=== PATIENT | female | born 1955 | race Caucasian/White ===

== ENCOUNTER 2024-10-24 17:13 | Outpatient (CLI) | payer MEDICARE, BC, SELFPAY | END 2024-10-24 17:14 | disposition home or self-care (01) | LOC: AMB 10-25 16:05 | PROVIDERS: Visit Provider Emergency Medicine | DX: R42 Dizziness and giddiness (principal) | CPT/HCPCS: A0425; A0427 ==

== ENCOUNTER 2024-10-24 18:01 | Emergency (ER) | payer MEDICARE, BC, SELFPAY ==
[2024-10-24] VITALS (50 sets, daily range): BP systolic 112–151; BP diastolic 45–102; PULSE 81–141; RESP 15–44; TEMP 36.6–38; O2SAT 85–100; BMI 26.6
[2024-10-24] MEDS: ONDANSETRON 2 MG/ML inj 4 MG IVP (18:32)
[2024-10-24] MEDS: 0.9 % SODIUM CHLORIDE 1000 ml 1,000 ML IV (18:32)
[2024-10-24 18:35] LABS: HCO3 VBG 19 mmol/L (21-28); PCO2 VBG 28 mmHG (40-50); PO2 VBG 59.1 mmHG (25-47); pH VBG 7.445 (7.32-7.43)
[2024-10-24 18:36] LABS: Basophils Absolute Auto 0.03 K/uL (0.00-0.30); Basophils Percent Auto 0.3 % (0.0-3.0); Eosinophils Absolute Auto 0.01 K/uL (0.00-0.50); Eosinophils Percent Auto 0.1 % (0.0-7.0); Hematocrit 15.2 % (33.0-51.0); Immature Granulocytes Abs Auto 0.03 K/uL (0.00-0.30); Immature Granulocytes Pct Auto 0.3 %; Lactate Sepsis w/Reflex* 1.4 mmol/L (0.5-1.9); Lymphocytes Percent Auto 10.1 % (20-44); Mean Corpuscular HGB Conc 31 gm/dL (32-36); Mean Corpuscular Hemoglobin 31 pg (26-34); Mean Corpuscular Volume 101 fL (80-100); Monocytes Percent Auto 3.9 % (0.0-11.0); Neutrophils Percent Auto 85.3 % (42.0-72.0); Platelet Count* 318 K/uL (140-440); RDW Coefficient of Variation % 16.9 % (11.5-15.5)
[2024-10-24 18:45] LABS: Hemoglobin* 4.7 gm/dL (12.0-16.0); Slide Review Reflex No
[2024-10-24 18:56] LABS: Albumin* 3.8 g/dL (3.3-5.0); Chloride* 112 mmol/L (96-114); Sodium* 140 mmol/L (135-149)
[2024-10-24 18:57] LABS: Fecal Occult Blood* Positive (Negative)
[2024-10-24 18:57] LABS: Potassium* 4.1 mmol/L (3.6-5.1)
[2024-10-24 18:58] LABS: Blood Urea Nitrogen* 58 mg/dL (7-30); Creatinine* 1.9 mg/dL (0.5-1.5); Est. Creatinine Clearance* 22.47; Estimated Glomerular Filt Rate 28 ml/min; INR 1.09 (0.91-1.10); Partial Thromboplastin Time* 24 Seconds (23-33); Prothrombin Time 14.9 Seconds
[2024-10-24 18:59] LABS: Alkaline Phosphatase* 40 U/L (40-150); Anion Gap 11 mEq/L (7-15); Aspartate Amino Transferase* 16 U/L (12-35); Bilirubin Direct* 0.1 mg/dL (0.0-0.5); Bilirubin Total* 0.1 mg/dL (0.1-1.5); Carbon Dioxide* 17 mmol/L (20-32); D Dimer Quantitative* 0.46 ug/ml (0.00-0.50); Total Protein* 5.8 g/dL (6.0-8.3)
[2024-10-24 19:00] LABS: Alanine Aminotransferase* 17 U/L (4-35); Calcium* 9.7 mg/dL (8.4-10.6); Glucose* 133 mg/dL (60-115); Lipase* 175 U/L (23-300)
[2024-10-24 19:02] LABS: C Reactive Protein* 1.9 mg/dL (0.5-1.0)
[2024-10-24] MEDS: PANTOPRAZOLE SODIUM 40 MG INJ IVP (19:33)
--- NOTE | 2024-10-24 23:03 | ED.GENADULT ---
HPI - General Adult General Date Seen: 10/24/24 Chief complaint: Dizziness/Vertigo Stated complaint: Weakness Time Seen by Provider: 10/24/24 18:09 History of Present Illness HPI narrative: Patient is a 69-year-old woman brought in by EMS after a fall at home. History is obtained from the paramedics, less so from the patient, has been provided additional information on his arrival. Apparently he left the house around 1:00 a.m.. He says that she seemed okay at that time. She has looked kind of pale the past couple of days. She had an episode of vomiting yesterday and an episode of vomiting today, he denies any hematemesis or ervin blood. Did see a little couple specks of blood in what she threw up today. She has not been complaining about abdominal pain. She denies stool changes. Only past medical history reported was of a psychiatric, bipolar I believe, for which she takes a couple of different medications. She is not anticoagulated. Denies tobacco history or significant alcohol use. She says she has been feeling lightheaded today, she has not had chest pain or difficulty breathing. She denies any injuries in her fall. Her came home at about 5:00 p.m. and says that she was on the floor at that time, she was too dizzy to get up on her own. There was no loss of consciousness. Related Data Home Medications ?Medication ?Instructions ?Recorded ?Confirmed cosamin ds 10/24/24 gabapentin 10/24/24 seroquel 10/24/24 women's multivitamin 10/24/24 Allergies Allergy/AdvReac Type Severity Reaction Status Date / Time eye medicine Allergy Intermediate Uncoded 10/24/24 18:26 Review of Systems Status of ROS: Reports: 10 or more systems reviewed and unremarkable except as noted in History and below PFSH PFS Social History How often do you have a drink containing alcohol: never AUDIT-C Alcohol total score: 0 Non-prescribed substance use: denies use Exam Narrative: Exam Narrative: Vital signs reviewed In general an alert, elderly woman, she is exceedingly pale. Head: Normocephalic, atraumatic. Eyes: Sclera clear, lids pale. Pupils equal and reactive. ENT: Mucous membranes moist. Neck: Supple without adenopathy. Nontender to palpation. Heart: Mildly tachycardic, regular, no significant murmur. Lungs: Clear. No increased work of breathing, crackles or wheezes. Abdomen: Soft, nontender to palpation. Rectal: Black stool is noted diffusely between her buttocks. Rectal exam shows no masses. Fecal occult blood is positive Extremities: Pale, pulses intact. No areas of tenderness, bruising or deformity. Neurologic: Alert, conversant. Speech fluent, face symmetric. Moves all extremities equally. Skin: Warm, dry well perfused. No rashes. Affect: Her affect is somewhat mismatched to the seriousness of her complaint. Const: Vital Signs, click to edit/add: Vital Signs - 24 hr 10/24/24 18:15 10/24/24 18:15 10/24/24 18:30 Temperature 97.8 F Pulse Rate 95 Pulse Rate [Pulse Oximeter] 93 Respiratory Rate 16 16 44 H Blood Pressure Blood Pressure [Ri ght Upper Arm] 113/59 L Pulse Oximetry 97 99 Oxygen Delivery Me thod Room Air Oxygen Flow Rate 10/24/24 18:32 10/24/24 18:33 10/24/24 18:45 Temperature Pulse Rate 94 96 96 Pulse Rate [Pulse Oximeter] Respiratory Rate 28 H 19 38 H Blood Pressure 112/45 L Blood Pressure [Ri ght Upper Arm] Pulse Oximetry 98 97 94 Oxygen Delivery Me thod Oxygen Flow Rate 10/24/24 19:00 10/24/24 19:05 10/24/24 19:15 Temperature Pulse Rate 103 H 102 H 141 H Pulse Rate [Pulse Oximeter] Respiratory Rate 22 15 38 H Blood Pressure Blood Pressure [Ri ght Upper Arm] Pulse Oximetry 99 97 Oxygen Delivery Me thod Oxygen Flow Rate 10/24/24 19:27 10/24/24 19:30 10/24/24 19:32 Temperature Pulse Rate 101 H 98 107 H Pulse Rate [Pulse Oximeter] Respiratory Rate 15 28 H 38 H Blood Pressure 141/86 H 143/49 H Blood Pressure [Ri ght Upper Arm] Pulse Oximetry 98 97 97 Oxygen Delivery Me thod Oxygen Flow Rate 10/24/24 19:33 10/24/24 20:03 10/24/24 20:15 Temperature Pulse Rate 102 H 102 H 106 H Pulse Rate [Pulse Oximeter] Respiratory Rate 20 Blood Pressure Blood Pressure [Ri ght Upper Arm] Pulse Oximetry 95 95 85 L Oxygen Delivery Me thod Oxygen Flow Rate 10/24/24 20:30 10/24/24 20:34 10/24/24 20:39 Temperature 98.8 F Pulse Rate 105 H 101 H 99 Pulse Rate [Pulse Oximeter] Respiratory Rate 18 Blood Pressure 128/57 L 128/57 L Blood Pressure [Ri ght Upper Arm] Pulse Oximetry 97 96 96 Oxygen Delivery Me thod Room Air Oxygen Flow Rate 10/24/24 20:45 10/24/24 21:00 10/24/24 21:02 Temperature Pulse Rate 93 94 95 Pulse Rate [Pulse Oximeter] Respiratory Rate Blood Pressure 124/61 Blood Pressure [Ri ght Upper Arm] Pulse Oximetry 100 99 99 Oxygen Delivery Me thod Oxygen Flow Rate 10/24/24 21:05 10/24/24 21:15 10/24/24 21:16 Temperature 100.4 F H Pulse Rate 92 91 100 Pulse Rate [Pulse Oximeter] Respiratory Rate 16 Blood Pressure 127/64 127/64 Blood Pressure [Ri ght Upper Arm] Pulse Oximetry 98 99 100 Oxygen Delivery Me thod Room Air Oxygen Flow Rate 10/24/24 21:21 10/24/24 21:30 10/24/24 21:31 Temperature 98.5 F Pulse Rate 91 89 Pulse Rate [Pulse Oximeter] Respiratory Rate Blood Pressure 129/63 Blood Pressure [Ri ght Upper Arm] Pulse Oximetry 100 99 Oxygen Delivery Me thod Oxygen Flow Rate 10/24/24 21:31 10/24/24 21:32 10/24/24 21:41 Temperature Pulse Rate 88 90 88 Pulse Rate [Pulse Oximeter] Respiratory Rate Blood Pressure 132/70 138/68 139/66 Blood Pressure [Ri ght Upper Arm] Pulse Oximetry 100 100 100 Oxygen Delivery Me thod Oxygen Flow Rate 10/24/24 21:45 10/24/24 21:50 10/24/24 21:51 Temperature 99.6 F Pulse Rate 86 85 88 Pulse Rate [Pulse Oximeter] Respiratory Rate 16 Blood Pressure 131/63 131/63 Blood Pressure [Ri ght Upper Arm] Pulse Oximetry 100 100 100 Oxygen Delivery Me thod Room Air Oxygen Flow Rate 10/24/24 21:52 10/24/24 22:00 10/24/24 22:01 Temperature Pulse Rate 94 88 87 Pulse Rate [Pulse Oximeter] Respiratory Rate Blood Pressure 147/72 H Blood Pressure [Ri ght Upper Arm] Pulse Oximetry 100 100 99 Oxygen Delivery Me thod Oxygen Flow Rate 10/24/24 22:12 10/24/24 22:15 10/24/24 22:19 Temperature 98 F Pulse Rate 88 Pulse Rate [Pulse Oximeter] Respiratory Rate Blood Pressure 143/82 H Blood Pressure [Ri ght Upper Arm] Pulse Oximetry 99 Oxygen Delivery Me thod Oxygen Flow Rate 10/24/24 22:22 10/24/24 22:30 10/24/24 22:32 Temperature Pulse Rate 89 81 81 Pulse Rate [Pulse Oximeter] Respiratory Rate Blood Pressure 145/78 H 151/70 H Blood Pressure [Ri ght Upper Arm] Pulse Oximetry 97 96 100 Oxygen Delivery Me thod Oxygen Flow Rate 10/24/24 22:42 10/24/24 22:45 10/24/24 22:51 Temperature Pulse Rate 81 86 88 Pulse Rate [Pulse Oximeter] Respiratory Rate Blood Pressure 147/84 H 143/65 H Blood Pressure [Ri ght Upper Arm] Pulse Oximetry 98 87 L 96 Oxygen Delivery Me thod Oxygen Flow Rate 10/24/24 23:00 10/24/24 23:02 10/24/24 23:12 Temperature Pulse Rate 86 84 83 Pulse Rate [Pulse Oximeter] Respiratory Rate Blood Pressure 145/102 H 140/83 H Blood Pressure [Ri ght Upper Arm] Pulse Oximetry 95 95 96 Oxygen Delivery Me thod Oxygen Flow Rate 10/24/24 23:15 10/24/24 23:22 10/24/24 23:23 Temperature Pulse Rate 82 82 83 Pulse Rate [Pulse Oximeter] Respiratory Rate Blood Pressure 113/92 H Blood Pressure [Ri ght Upper Arm] Pulse Oximetry 92 96 93 Oxygen Delivery Me thod Oxygen Flow Rate 10/24/24 23:54 10/25/24 00:00 10/25/24 00:04 Temperature Pulse Rate 84 Pulse Rate [Pulse Oximeter] Respiratory Rate Blood Pressure Blood Pressure [Ri ght Upper Arm] Pulse Oximetry 89 89 91 Oxygen Delivery Me thod Oxygen Flow Rate 10/25/24 00:19 10/25/24 00:21 10/25/24 00:45 Temperature Pulse Rate 94 Pulse Rate [Pulse Oximeter] Respiratory Rate Blood Pressure Blood Pressure [Ri ght Upper Arm] Pulse Oximetry 93 94 93 Oxygen Delivery Me thod Nasal Cannula Nasal Cannula Oxygen Flow Rate 1 1 Course Course ED Course: On arrival, patient was placed on the monitor, a 2nd IV was established, and she was given a L normal saline. An EKG showed a sinus rhythm, ventricular rate at that time of 96. No acute ST segment changes. Nonspecific T-waves. Initial troponin was 0. My primary concern was for blood loss, I did send labs for CBC, coags, metabolic panel, LFTs, type and screen. In the meantime, she had a chest x-ray which by my review is negative. She was hemodynamically stable here with the exception of mild tachycardia. She did not have any vomiting or stooling while here in the emergency department. Her hemoglobin returned at 4.7 and as mentioned above the fecal occult blood was positive. I ordered Protonix, I also ordered a CT scan GI bleed protocol. I ordered 2 units for transfusion. Labs were notable for normal white blood cell count, venous gas showed a pH is 7.45, pCO2 of 28 and bicarb of 19. CO2 was 17 on her metabolic panel, BUN 58 and creatinine 1.9, baseline unknown. Lactate normal, LFTs normal, CRP 1.9, lipase 175. Prior to CT scan, I had discussed this patient with our general surgeon on-call, Dr. Cooper. She felt that patient would likely be best served at a larger facility given her profound anemia and indeterminate availability of endoscopy tomorrow. I had begun to pursue options for transfer, which were extraordinarily limited as there were no available [facility] bed it is in the [facility]. CT scan of the abdomen read by Radiology as showing a 5.1 cm mass with active arterial bleeding. At that time I reached back out for possible ICU beds, and [facility] reported being able to take her. Images were pushed so that in that interventional radiology can review. Initially they thought they would have a bed fairly quickly, but patient's transfer has been delayed secondary to acuity in their ICU with a couple of codes and inability to get the images to the interventional radiologist thus far. She is received 2 units of packed red cells. Given that she is going to be here, I will order repeat coags and CBC. Vital signs remain reassuring. There was a pulse ox recorded of 87% but nursing tells me that that was not accurate. Post transfusion, hemoglobin is 7.1, coags including PT PTT and fibrinogen remain normal. She has remained hemodynamically stable, heart rates been in the 90s. We do now have a bed ready at [facility] and she will be transported by ground ambulance. She apparently takes Ativan at night to sleep, was given 0.5 mg here. I did not give her her Seroquel as I have elected to keep her entirely npo. Vital Signs Vital signs: Initial Vital Signs Temperature 97.8 F 10/24/24 18:15 Temperature Source Temporal Artery Scan 10/24/24 18:15 Pulse Rate 93 10/24/24 18:15 Respiratory Rate 16 10/24/24 18:15 Blood Pressure 113/59 L 10/24/24 18:15 Blood Pressure Mean 77 10/24/24 18:15 Blood Pressure Position Supine 10/24/24 18:15 Pulse Oximetry 97 10/24/24 18:15 Oxygen Delivery Method Room Air 10/24/24 18:15 Vital Signs Temperature 97.8 F 10/24/24 18:15 Pulse Rate 93 10/24/24 18:15 Respiratory Rate 16 10/24/24 18:15 Blood Pressure 113/59 L 10/24/24 18:15 Pulse Oximetry 97 10/24/24 18:15 Oxygen Delivery Method Room Air 10/24/24 18:15 Temperature 98 F 10/24/24 22:19 Pulse Rate 94 10/25/24 00:45 Respiratory Rate 16 10/24/24 21:50 Blood Pressure 113/92 H 10/24/24 23:22 Pulse Oximetry 93 10/25/24 00:45 Oxygen Delivery Method Nasal Cannula 10/25/24 00:21 Oxygen Flow Rate 1 10/25/24 00:21 Medications Administered Medications: Discontinued Medications Generic Name Dose Route Start Last Admin Trade Name Freq PRN Reason Stop Dose Admin Sodium Chloride 1,000 mls @ 1,000 mls/hr 10/24/24 18:30 10/24/24 19:39 0.9 % Sodium Chloride 1000 Ml IV 10/24/24 19:29 Infused .Q1H FREDIS Infusion Lorazepam 0.5 mg 10/24/24 23:47 10/24/24 23:57 Lorazepam 2 Mg/Ml Inj IVP 10/24/24 23:48 0.5 mg ONCE ONE Administration Ondansetron HCl 4 mg 10/24/24 18:20 10/24/24 18:32 Ondansetron 2 Mg/Ml Inj IVP 10/24/24 18:21 4 mg ONCE ONE Administration Pantoprazole Sodium 40 mg 10/24/24 19:01 10/24/24 19:33 Pantoprazole Sodium 40 Mg Inj IVP 10/24/24 19:02 40 mg ONCE ONE Administration Medical Decision Making Lab Data Labs: Lab Results 10/24/24 10/24/24 10/24/24 Range/Units 18:18 18:25 18:25 WBC 11.00 (4.50-11.00) K/uL RBC 1.50 L (4.00-5.20) m/uL Hgb 4.7 L* (12.0-16.0) gm/dL Hct 15.2 L (33.0-51.0) % MCV 101 H (80-100) fL MCH 31 (26-34) pg MCHC 31 L (32-36) gm/dL RDW Coeff of Rashmi 16.9 H (11.5-15.5) % Plt Count 318 (140-440) K/uL Neut % (Auto) 85.3 H (42.0-72.0) % Lymph % (Auto) 10.1 L (20-44) % Union % (Auto) 3.9 (0.0-11.0) % Eos % (Auto) 0.1 (0.0-7.0) % Baso % (Auto) 0.3 (0.0-3.0) % Neut # (Auto) 9.40 H (1.7-7.0) K/uL Lymph # (Auto) 1.10 (0.90-2.90) K/uL Union # (Auto) 0.40 (0.00-0.90) K/UL Eos # (Auto) 0.01 (0.00-0.50) K/uL Baso # (Auto) 0.03 (0.00-0.30) K/uL Abs Immat Gran (auto) 0.03 (0.00-0.30) K/uL Imm/Tot Granulo (auto) 0.3 % INR 1.09 Cancelled (0.91-1.10) APTT 24 (23-33) Seconds Fibrinogen (200-450) mg/dL D-Dimer Quant (PE/DVT) (0.00-0.50) ug/ml VBG pH (7.32-7.43) VBG pCO2 (40-50) mmHG VBG pO2 (25-47) mmHG VBG HCO3 (21-28) mmol/L Sodium (135-149) mmol/L Potassium (3.6-5.1) mmol/L Chloride (96-114) mmol/L Carbon Dioxide (20-32) mmol/L Anion Gap (7-15) mEq/L BUN (7-30) mg/dL Creatinine (0.5-1.5) mg/dL Estimated Creat Clear Estimated GFR ml/min Glucose (60-115) mg/dL Lactate (0.5-1.9) mmol/L Calcium (8.4-10.6) mg/dL Total Bilirubin (0.1-1.5) mg/dL Direct Bilirubin (0.0-0.5) mg/dL AST (12-35) U/L ALT (4-35) U/L Alkaline Phosphatase (40-150) U/L C-Reactive Protein (0.5-1.0) mg/dL Total Protein (6.0-8.3) g/dL Albumin (3.3-5.0) g/dL Lipase (23-300) U/L Stool Occult Blood (Negative) POC Troponin I 0.00 L (0.01-0.04) ng/ml Blood Type Antibody Screen Crossmatch (AHG) 10/24/24 10/24/24 10/25/24 Range/Units 18:25 18:45 00:15 WBC 11.28 H (4.50-11.00) K/uL RBC 2.29 L (4.00-5.20) m/uL Hgb 7.1 L* (12.0-16.0) gm/dL Hct 22.0 L (33.0-51.0) % MCV 96 (80-100) fL MCH 31 (26-34) pg MCHC 32 (32-36) gm/dL RDW Coeff of Rashmi 17.0 H (11.5-15.5) % Plt Count 251 (140-440) K/uL Neut % (Auto) 83.3 H (42.0-72.0) % Lymph % (Auto) 10.0 L (20-44) % Union % (Auto) 5.9 (0.0-11.0) % Eos % (Auto) 0.1 (0.0-7.0) % Baso % (Auto) 0.2 (0.0-3.0) % Neut # (Auto) 9.40 H (1.7-7.0) K/uL Lymph # (Auto) 1.10 (0.90-2.90) K/uL Union # (Auto) 0.70 (0.00-0.90) K/UL Eos # (Auto) 0.00 (0.00-0.50) K/uL Baso # (Auto) 0.00 (0.00-0.30) K/uL Abs Immat Gran (auto) 0.10 (0.00-0.30) K/uL Imm/Tot Granulo (auto) 0.5 % INR 1.10 (0.91-1.10) APTT Cancelled 24 (23-33) Seconds Fibrinogen 352 (200-450) mg/dL D-Dimer Quant (PE/DVT) 0.46 (0.00-0.50) ug/ml VBG pH 7.445 H (7.32-7.43) VBG pCO2 28 L (40-50) mmHG VBG pO2 59.1 H (25-47) mmHG VBG HCO3 19 L (21-28) mmol/L Sodium 140 (135-149) mmol/L Potassium 4.1 (3.6-5.1) mmol/L Chloride 112 (96-114) mmol/L Carbon Dioxide 17 L (20-32) mmol/L Anion Gap 11 (7-15) mEq/L BUN 58 H (7-30) mg/dL Creatinine 1.9 H (0.5-1.5) mg/dL Estimated Creat Clear 22.47 Estimated GFR 28 ml/min Glucose 133 H (60-115) mg/dL Lactate 1.4 (0.5-1.9) mmol/L Calcium 9.7 (8.4-10.6) mg/dL Total Bilirubin 0.1 (0.1-1.5) mg/dL Direct Bilirubin 0.1 (0.0-0.5) mg/dL AST 16 (12-35) U/L ALT 17 (4-35) U/L Alkaline Phosphatase 40 (40-150) U/L C-Reactive Protein 1.9 H (0.5-1.0) mg/dL Total Protein 5.8 L (6.0-8.3) g/dL Albumin 3.8 (3.3-5.0) g/dL Lipase 175 (23-300) U/L Stool Occult Blood Positive A (Negative) POC Troponin I (0.01-0.04) ng/ml Blood Type A Positive Antibody Screen NEGATIVE Crossmatch (AHG) See Detail Imaging Data CT scan - abdomen: Attestation: I have reviewed the pertinent imaging results. Radiologist's impression: Patient: THELMA MARISCAL Facility: [facility] RIS Site . Site : 1955 Study: CT-Abdomen/Pelvis Angio GI BLEED PROTOCOL W/ 95CC IS-10/24/2024 7:58:45 PM Ordering Physician: Dayton Olvera Final Report: INDICATION: Melena, hemoglobin is 4.7. COMPARISON: Chest radiograph from the same day TECHNIQUE: CT angiogram abdomen and pelvis without and with contrast, GI bleed protocol to include pre-contrast, arterial phase (CT angiography), and portal venous phase imaging. Multiplanar axial, coronal, and sagittal reformats are included. MIP images to improve detection of arterial pathology. Intravenous contrast: 95 ml Omnipaque 350. FINDINGS: Aorta and its branches: Well-timed contrast bolus. Normal caliber of the abdominal aorta. No intramural hematoma. No atherosclerotic plaques. No penetrating atherosclerotic ulcers. No aortic dissection. The mesenteric vessels are patent without critical stenosis. The common, internal, and external iliac arteries are patent without critical stenosis. The common femoral arteries are patent without critical stenosis. GI: There is an enhancing intraluminal mass in the gastric fundus that measures 5.1 x 4.4 x 3.4 cm. There is associated active arterial bleeding into the gastric lumen. The mass is confined to the gastric lumen without extension beyond the expected margin of the stomach. There is a small sliding-type hiatal hernia. The remainder of the bowel has a normal appearance. There is a large rectal stool ball but overall the stool burden is mild. Normal appendix. Lung bases: Normal. Liver: There is a 1.1 centimeter subcapsular hypoenhancing lesion in the right lobe of the liver. There is some overlying capsular contraction. No enhancement with Hounsfield units of 15, consistent with a simple cyst. There are not any focal liver lesions otherwise. Gallbladder and bile ducts: Normal gallbladder. No bile duct dilation. Pancreas: Normal. Spleen: Normal. Adrenal glands: Normal. Kidneys: Normal renal size and position. There are multiple dystrophic parenchymal calcifications scattered throughout both kidneys. There are several large renal cysts but there are innumerable tiny renal cysts as well. No definitively solid renal mass. No urinary tract calculi seen. No urinary tract dilation. Urinary bladder: Normal. Pelvis: There is a small likely fibroid at the uterine fundus measuring 2 centimeters. No worrisome pelvic cyst or mass. Lymph nodes: No adenopathy. Peritoneum: No ascites. Abdominal wall: Fat containing umbilical hernia. BONES: No fractures. No focal bone lesions. Severe scoliosis. Disc and facet degeneration. IMPRESSION: 1. There is a 5.1 centimeter mass in the gastric fundus with associated active arterial bleeding into the gastric lumen. 2. Leading diagnostic consideration is a gastric adenocarcinoma. GIST and lymphoma could also be considered. Tissue sampling will be necessary. 3. No metastatic disease seen in the abdomen or pelvis. 4. Extensive renal cysts, but not in a pattern typical of autosomal dominant polycystic kidney disease. Other cystic renal dysplasia is could be considered. Mass with active arterial intragastric bleeding discussed with Dr. Burris at 8:07 p.m. on 10/24/2024 Critical Care Time Critical Care Time Total Critical Care Time in Minutes: 60 Discharge Plan Discharge Clinical Impression: Acute GI bleeding, Gastric mass Patient Disposition: Xfer Other Condition: Critical Prescriptions: No Action gabapentin cosamin ds seroquel women's multivitamin Stand Alone Forms: [employer] Info Instructions
[2024-10-24] MEDS: LORazepam 2 MG/ML inj 0.5 MG IVP (23:57)
[2024-10-25] VITALS: O2SAT 89
[2024-10-25 00:04] VITALS: PULSE 84; O2SAT 91
[2024-10-25 00:19] VITALS: O2SAT 93
[2024-10-25 00:21] VITALS: O2SAT 94
[2024-10-25 00:21] LABS: Basophils Percent Auto 0.2 % (0.0-3.0); Eosinophils Percent Auto 0.1 % (0.0-7.0); Immature Granulocytes Pct Auto 0.5 %; Mean Corpuscular HGB Conc 32 gm/dL (32-36); Mean Corpuscular Hemoglobin 31 pg (26-34); Mean Corpuscular Volume 96 fL (80-100); Monocytes Percent Auto 5.9 % (0.0-11.0); Neutrophils Percent Auto 83.3 % (42.0-72.0); Platelet Count* 251 K/uL (140-440); Red Blood Count 2.29 m/uL (4.00-5.20); White Blood Count* 11.28 K/uL (4.50-11.00)
[2024-10-25 00:28] LABS: Hemoglobin* 7.1 gm/dL (12.0-16.0)
[2024-10-25 00:29] LABS: Slide Review Reflex No
[2024-10-25 00:45] VITALS: PULSE 94; O2SAT 93
[2024-10-25 00:48] LABS: Fibrinogen* 352 mg/dL (200-450); Partial Thromboplastin Time* 24 Seconds (23-33); Prothrombin Time 15.1 Seconds
== END 2024-10-25 01:21 | disposition other institution (70) ==
PROVIDERS: Emergency Provider Emergency Medicine
DX: K92.2 Gastrointestinal hemorrhage, unspecified (principal); R19.00 Intra-abdominal and pelvic swelling, mass and lump, unspecified site
CPT/HCPCS: 36415; 71045; 74174; 80048; 80076; 82270; 82803; 83605; 83690; 84484; 85025; 85379; 85384; 85610; 85730; 86140; 86850; 86900; 86901; 86922; 93005; 94761; 99285; 99291; J2060; J2405; J2470; J7030; P9016; Q9967

== ENCOUNTER 2024-10-25 01:02 | Outpatient (CLI) | payer MEDICARE, BC, SELFPAY | END 2024-10-25 01:03 | disposition home or self-care (01) | LOC: AMB 10-26 09:12 | PROVIDERS: Visit Provider Family Medicine | DX: K31.89 Other diseases of stomach and duodenum (principal); K92.2 Gastrointestinal hemorrhage, unspecified | CPT/HCPCS: A0425; A0427 ==

== ENCOUNTER 2024-11-01 09:56 | Outpatient (CLI) | payer MEDICARE, BC, SELFPAY ==
[2024-11-01 10:34] LABS: Basophils Absolute Auto 0.04 K/uL (0.00-0.30); Basophils Percent Auto 0.6 % (0.0-3.0); Eosinophils Percent Auto 6.4 % (0.0-7.0); Hematocrit 30.7 % (33.0-51.0); Hemoglobin* 9.6 gm/dL (12.0-16.0); Immature Granulocytes Abs Auto 0.06 K/uL (0.00-0.30); Lymphocytes Absolute Auto 1.47 K/uL (0.90-2.90); Lymphocytes Percent Auto 23.7 % (20-44); Mean Corpuscular HGB Conc 31 gm/dL (32-36); Mean Corpuscular Hemoglobin 31 pg (26-34); Mean Corpuscular Volume 98 fL (80-100); Monocytes Percent Auto 11.9 % (0.0-11.0); Neutrophils Percent Auto 56.4 % (42.0-72.0); Platelet Count* 373 K/uL (140-440); RDW Coefficient of Variation % 15.7 % (11.5-15.5); Red Blood Count 3.14 m/uL (4.00-5.20); White Blood Count* 6.21 K/uL (4.50-11.00)
[2024-11-01 10:37] LABS: Slide Review Reflex No
== END 2024-11-01 09:57 | disposition home or self-care (01) ==
PROVIDERS: Orthopaedic Surgery; Visit Provider Surgery Surgical Oncology
DX: I28.0 Arteriovenous fistula of pulmonary vessels (principal)
CPT/HCPCS: 36415; 85025

== ENCOUNTER 2025-04-17 10:45 | Outpatient (RCR) | payer MEDICARE, BC, SELFPAY | END 2025-08-15 23:59 | disposition home or self-care (01) | PROVIDERS: Visit Provider Physician Assistant Medical | DX: M41.9 Scoliosis, unspecified (principal); Z51.89 Encounter for other specified aftercare | CPT/HCPCS: 97110; 97140; 97162 ==